=== PATIENT | female | born 1975 | race Caucasian/White ===

== ENCOUNTER 2019-01-17 11:47 | Inpatient (IN) ==
[2019-01-17] MEDS ORDERED: Celecoxib 200 MG CAPSULE PO ONE (12:11)
[2019-01-17] MEDS ORDERED: Gabapentin 300 MG CAPSULE PO ONE (12:11)
[2019-01-17] MEDS ORDERED: traMADol 50 MG TABLET PO ONE (12:11)
[2019-01-17] MEDS ORDERED: *HR* Promethazine 25 MG/ML VIAL IVP PRN ×2 (12:12→21:55)
[2019-01-17] MEDS ORDERED: Ringers Solution, Lactated 1,000 ML IVC SCH (12:15)
[2019-01-17] MEDS ORDERED: Clindamycin 900 MG/50 ML 900 MG/50 ML IV.SOLN IVPB ONE ×2 (12:18→18:01)
[2019-01-17] MEDS ORDERED: Albuterol 2.5 MG/3 ML NEBULIZER IH PRN (12:18)
[2019-01-17] MEDS ORDERED: *HR* Succinylcholine 200 MG/10 ML VIAL IVP ONE (13:01)
[2019-01-17] MEDS ORDERED: Lidocaine -MPF 2% 2 ML VIAL ONE (13:01)
[2019-01-17] MEDS ORDERED: *HR* Rocuronium Bromide 50 MG/5 ML VIAL ONE ×2 (13:01→15:08)
[2019-01-17] MEDS ORDERED: *HR* Propofol 200 MG/20 ML VIAL IVP ONE (13:01)
[2019-01-17] MEDS ORDERED: *HR* FentaNYL (PF) 100 MCG/2 ML VIAL ONE ×2 (13:01→13:41)
[2019-01-17] MEDS ORDERED: *HR* Midazolam HCl 2 MG/2 ML VIAL ONE (13:01)
[2019-01-17] MEDS ORDERED: Lidocaine HCL 4 ML Topical Solution (Laryng-O-Jet Kit Sterile Pak) TP ONE (13:01)
[2019-01-17] MEDS ORDERED: *HR* PHENYLEPHRINE 1,000 MCG/10 ML SYRINGE IVP ONE ×4 (13:04→19:48)
[2019-01-17] MEDS ORDERED: Ondansetron 4 MG/2 ML VIAL ONE ×2 (13:41→20:11)
[2019-01-17] MEDS ORDERED: Neostigmine Methylsulfate 3 MG/3 ML SYRINGE ONE (13:41)
[2019-01-17] MEDS ORDERED: Dexamethasone 4 MG/ML VIAL ONE (13:41)
[2019-01-17] MEDS ORDERED: *HR* HYDROMORPHONE 2 MG/ML VIAL ONE ×2 (18:49→20:09)
[2019-01-17] MEDS ORDERED: EPHEDrine 50 MG/ML VIAL ONE (19:32)
[2019-01-17] MEDS ORDERED: Acetaminophen IV 1,000 MG/100 ML INFUS..BTL ONE (20:45)
[2019-01-17] MEDS: *HR* HYDROmorphone (PF) 1 MG/ML SYRINGE IVP PRN ×2 (21:12→21:20)
[2019-01-17] MEDS ORDERED: Naloxone 0.4 MG/ML INJ IVP PRN (21:55)
[2019-01-17] MEDS ORDERED: *HR* FentaNYL (PF) 100 MCG/2 ML VIAL IVP PRN (21:55)
[2019-01-17] MEDS: 0.9 % Sodium Chloride 1,000 ML IVC SCH (22:18)
[2019-01-17] MEDS: MetroNIDAZOLE 500 MG/100 ML 500 MG/100 ML BAG IVPB SCH (23:51)
[2019-01-18] MEDS: Acetaminophen IV 1,000 MG/100 ML INFUS..BTL IVPB SCH ×5 (00:54→23:53)
[2019-01-18 07:17] LABS: Basophils % 0.1 %; Hemoglobin 12.5 g/dL (11.5-15.4); Immature Granulocytes % 0.3 % (0-4); Lymphocytes # 0.8 K/mcL (0.6-4.6); Lymphocytes % 8.2 %; Mean Corpuscular HGB Conc 33.8 g/dL (31.6-35.5); Mean Corpuscular Hemoglobin 30.7 pg (28.0-33.3); Mean Corpuscular Volume 90.9 fL (83.0-100.0); Mean Platelet Volume 8.7 fL (9.4-12.4); Monocytes # 0.6 K/mcL (0.0-1.3); Monocytes % 6.2 %; Neutrophils # 7.9 K/mcL (1.6-8.9); Platelet Count 240 K/mcL (140-400); Red Blood Count 4.07 M/mcL (3.82-4.97); Red Cell Distribution Width 13.3 % (11.5-14.5); Segmented Neutrophils % 85.2 %; White Blood Count 9.3 K/mcL (4.3-11.1)
[2019-01-18] MEDS: 0.9 % Sodium Chloride 1,000 ML IVC SCH ×3 (07:31→20:59)
[2019-01-18] MEDS: Pantoprazole 40 MG VIAL IVP SCH (08:00)
[2019-01-18] MEDS: MetroNIDAZOLE 500 MG/100 ML 500 MG/100 ML BAG IVPB SCH ×3 (08:00→23:54)
[2019-01-18 08:17] LABS: BUN/Creatinine Ratio 11 (6-26); Blood Urea Nitrogen 8 mg/dL (6-20); Calcium 8.3 mg/dL (8.6-10.3); Carbon Dioxide 27 mEq/L (23-29); Chloride 103 mEq/L (98-107); Glucose 135 mg/dL (70-105); Magnesium 1.5 mg/dL (1.6-2.6); Osmolality,Calculated 286 (280-300); Phosphorous 3.7 mg/dL (2.7-4.5); Sodium 138 mEq/L (136-145); eGFR For African Americans > 60 (> 60); eGFR For Non-African Americans > 60 (> 60)
[2019-01-18] MEDS ORDERED: Saliva Stimulant 100ml BOTTLE PO PRN (09:43)
[2019-01-18] MEDS ORDERED: Chloraseptic Spray 177 ML BOTTLE MM PRN (09:43)
[2019-01-18] MEDS: Ipratropium/Albuterol Neb 3 ML IH SCH ×3 (15:02→20:15)
[2019-01-18] MEDS: Ketorolac 15 MG/ML VIAL IVP SCH ×2 (17:51→23:52)
[2019-01-19] MEDS: Ipratropium/Albuterol Neb 3 ML IH SCH ×7 (00:12→23:58)
[2019-01-19] MEDS: 0.9 % Sodium Chloride 1,000 ML IVC SCH ×4 (00:19→18:22)
[2019-01-19 02:59] LABS: Basophils % 0.3 %; Eosinophils # 0.1 K/mcL (0.0-0.6); Eosinophils % 1.1 %; Hematocrit 35.4 % (35.3-44.9); Hemoglobin 11.3 g/dL (11.5-15.4); Immature Granulocytes % 0.3 % (0-4); Lymphocytes # 1.2 K/mcL (0.6-4.6); Lymphocytes % 16.5 %; Mean Corpuscular HGB Conc 31.9 g/dL (31.6-35.5); Mean Corpuscular Hemoglobin 30.3 pg (28.0-33.3); Mean Corpuscular Volume 94.9 fL (83.0-100.0); Mean Platelet Volume 8.9 fL (9.4-12.4); Monocytes # 0.6 K/mcL (0.0-1.3); Monocytes % 7.7 %; Neutrophils # 5.3 K/mcL (1.6-8.9); Platelet Count 207 K/mcL (140-400); Red Blood Count 3.73 M/mcL (3.82-4.97); Red Cell Distribution Width 13.7 % (11.5-14.5); Segmented Neutrophils % 74.1 %; White Blood Count 7.1 K/mcL (4.3-11.1)
[2019-01-19 03:19] LABS: BUN/Creatinine Ratio 11 (6-26); Blood Urea Nitrogen 7 mg/dL (6-20); Calcium 8.1 mg/dL (8.6-10.3); Carbon Dioxide 27 mEq/L (23-29); Chloride 105 mEq/L (98-107); Glucose 101 mg/dL (70-105); Magnesium 1.8 mg/dL (1.6-2.6); Osmolality,Calculated 284 (280-300); Phosphorous 2.1 mg/dL (2.7-4.5); Potassium 3.6 mEq/L (3.5-5.1); Sodium 138 mEq/L (136-145); eGFR For African Americans > 60 (> 60); eGFR For Non-African Americans > 60 (> 60)
[2019-01-19] MEDS: Ketorolac 15 MG/ML VIAL IVP SCH ×3 (06:03→18:22)
[2019-01-19] MEDS: Acetaminophen IV 1,000 MG/100 ML INFUS..BTL IVPB SCH ×3 (06:04→18:20)
[2019-01-19] MEDS: Pantoprazole 40 MG VIAL IVP SCH (10:11)
[2019-01-19] MEDS: MetroNIDAZOLE 500 MG/100 ML 500 MG/100 ML BAG IVPB SCH ×2 (10:11→16:19)
[2019-01-19] MEDS: *HR* Heparin 5,000 UNIT/ML VIAL SQ SCH ×2 (10:11→18:22)
[2019-01-19] MEDS ORDERED: Potassium Phosphate 44 MEQ in 0.9 % Sodium Chloride 250 ML IVPB ONE (11:16)
[2019-01-19] MEDS: Ondansetron 4 MG/2 ML VIAL IVP PRN (16:20)
[2019-01-20] MEDS: Acetaminophen IV 1,000 MG/100 ML INFUS..BTL IVPB SCH ×5 (00:52→23:49)
[2019-01-20] MEDS: MetroNIDAZOLE 500 MG/100 ML 500 MG/100 ML BAG IVPB SCH ×3 (00:52→16:06)
[2019-01-20] MEDS: Ketorolac 15 MG/ML VIAL IVP SCH ×5 (00:53→23:50)
[2019-01-20] MEDS: *HR* LORazepam 2 MG/ML VIAL IVP PRN (02:36)
[2019-01-20] MEDS: Ipratropium/Albuterol Neb 3 ML IH SCH ×6 (04:13→22:41)
[2019-01-20 05:36] LABS: Basophils % 0.7 %; Eosinophils # 0.4 K/mcL (0.0-0.6); Eosinophils % 6.6 %; Hematocrit 32.6 % (35.3-44.9); Hemoglobin 10.4 g/dL (11.5-15.4); Immature Granulocytes % 0.5 % (0-4); Lymphocytes # 1.5 K/mcL (0.6-4.6); Lymphocytes % 24.9 %; Mean Corpuscular HGB Conc 31.9 g/dL (31.6-35.5); Mean Corpuscular Hemoglobin 30.2 pg (28.0-33.3); Mean Corpuscular Volume 94.8 fL (83.0-100.0); Mean Platelet Volume 8.6 fL (9.4-12.4); Monocytes # 0.5 K/mcL (0.0-1.3); Monocytes % 7.6 %; Neutrophils # 3.6 K/mcL (1.6-8.9); Platelet Count 198 K/mcL (140-400); Red Blood Count 3.44 M/mcL (3.82-4.97); Red Cell Distribution Width 13.3 % (11.5-14.5); Segmented Neutrophils % 59.7 %; White Blood Count 6.1 K/mcL (4.3-11.1)
[2019-01-20] MEDS: *HR* Heparin 5,000 UNIT/ML VIAL SQ SCH ×2 (05:51→18:06)
[2019-01-20 05:56] LABS: BUN/Creatinine Ratio 10 (6-26); Blood Urea Nitrogen 6 mg/dL (6-20); Calcium 8.5 mg/dL (8.6-10.3); Carbon Dioxide 28 mEq/L (23-29); Chloride 104 mEq/L (98-107); Glucose 89 mg/dL (70-105); Magnesium 1.7 mg/dL (1.6-2.6); Osmolality,Calculated 287 (280-300); Phosphorous 2.9 mg/dL (2.7-4.5); Potassium 3.3 mEq/L (3.5-5.1); Sodium 140 mEq/L (136-145); eGFR For African Americans > 60 (> 60); eGFR For Non-African Americans > 60 (> 60)
[2019-01-20] MEDS: Pantoprazole 40 MG VIAL IVP SCH (08:32)
[2019-01-20] MEDS: D5% in 0.45% NACL w KCl 20 MEQ/1,000 ML MLS IVC SCH ×2 (08:32→23:50)
[2019-01-20] MEDS ORDERED: Potassium Chloride 40 MEQ, Lidocaine 1% 2 ML in 0.9 % Sodium Chloride 500 ML IVPB ONE (12:09)
[2019-01-20] MEDS: Ondansetron 4 MG/2 ML VIAL IVP PRN (23:50)
[2019-01-21] MEDS: MetroNIDAZOLE 500 MG/100 ML 500 MG/100 ML BAG IVPB SCH ×3 (00:25→16:40)
[2019-01-21] MEDS: *HR* LORazepam 2 MG/ML VIAL IVP PRN (02:07)
[2019-01-21] MEDS: Ipratropium/Albuterol Neb 3 ML IH SCH ×5 (03:46→20:26)
[2019-01-21] MEDS: Ketorolac 15 MG/ML VIAL IVP SCH ×3 (05:14→17:25)
[2019-01-21] MEDS: Acetaminophen IV 1,000 MG/100 ML INFUS..BTL IVPB SCH ×3 (05:15→18:34)
[2019-01-21] MEDS: *HR* Heparin 5,000 UNIT/ML VIAL SQ SCH ×2 (05:17→17:25)
[2019-01-21 06:25] LABS: Basophils % 0.4 %; Eosinophils # 0.2 K/mcL (0.0-0.6); Hematocrit 32.9 % (35.3-44.9); Hemoglobin 11.2 g/dL (11.5-15.4); Immature Granulocytes % 0.3 % (0-4); Lymphocytes # 1.1 K/mcL (0.6-4.6); Lymphocytes % 14.6 %; Mean Corpuscular Hemoglobin 30.8 pg (28.0-33.3); Mean Corpuscular Volume 90.4 fL (83.0-100.0); Mean Platelet Volume 9.1 fL (9.4-12.4); Monocytes # 0.4 K/mcL (0.0-1.3); Monocytes % 5.8 %; Neutrophils # 5.6 K/mcL (1.6-8.9); Platelet Count 252 K/mcL (140-400); Red Blood Count 3.64 M/mcL (3.82-4.97); Red Cell Distribution Width 13.2 % (11.5-14.5); Segmented Neutrophils % 75.9 %; White Blood Count 7.4 K/mcL (4.3-11.1)
[2019-01-21 06:46] LABS: BUN/Creatinine Ratio 8 (6-26); Blood Urea Nitrogen 5 mg/dL (6-20); Calcium 8.7 mg/dL (8.6-10.3); Carbon Dioxide 28 mEq/L (23-29); Chloride 104 mEq/L (98-107); Glucose 102 mg/dL (70-105); Magnesium 1.7 mg/dL (1.6-2.6); Osmolality,Calculated 283 (280-300); Phosphorous 3.2 mg/dL (2.7-4.5); Potassium 3.6 mEq/L (3.5-5.1); Sodium 138 mEq/L (136-145); eGFR For African Americans > 60 (> 60); eGFR For Non-African Americans > 60 (> 60)
[2019-01-21] MEDS: Ondansetron 4 MG/2 ML VIAL IVP PRN ×3 (09:17→21:44)
[2019-01-21] MEDS: Pantoprazole 40 MG VIAL IVP SCH (09:17)
[2019-01-21] MEDS: Metoclopramide 10 MG/2 ML VIAL IVP SCH ×2 (12:12→17:25)
[2019-01-21] MEDS: D5% in 0.45% NACL w KCl 20 MEQ/1,000 ML MLS IVC SCH (15:39)
[2019-01-22] MEDS: Metoclopramide 10 MG/2 ML VIAL IVP SCH ×4 (00:39→18:29)
[2019-01-22] MEDS: Ketorolac 15 MG/ML VIAL IVP SCH ×4 (00:39→18:27)
[2019-01-22] MEDS: Acetaminophen IV 1,000 MG/100 ML INFUS..BTL IVPB SCH ×4 (00:39→18:27)
[2019-01-22] MEDS: MetroNIDAZOLE 500 MG/100 ML 500 MG/100 ML BAG IVPB SCH ×3 (00:40→15:36)
[2019-01-22] MEDS: *HR* LORazepam 2 MG/ML VIAL IVP PRN (00:44)
[2019-01-22] MEDS: Ipratropium/Albuterol Neb 3 ML IH SCH ×7 (01:02→23:36)
[2019-01-22] MEDS: D5% in 0.45% NACL w KCl 20 MEQ/1,000 ML MLS IVC SCH ×3 (05:25→23:19)
[2019-01-22] MEDS: *HR* Heparin 5,000 UNIT/ML VIAL SQ SCH ×2 (05:26→18:29)
[2019-01-22] MEDS: Ondansetron 4 MG/2 ML VIAL IVP PRN (08:21)
[2019-01-22] MEDS: Pantoprazole 40 MG VIAL IVP SCH (08:21)
[2019-01-22 09:22] LABS: BUN/Creatinine Ratio 9 (6-26); Blood Urea Nitrogen 6 mg/dL (6-20); Calcium 8.5 mg/dL (8.6-10.3); Carbon Dioxide 27 mEq/L (23-29); Chloride 104 mEq/L (98-107); Glucose 110 mg/dL (70-105); Osmolality,Calculated 284 (280-300); Potassium 3.5 mEq/L (3.5-5.1); Sodium 138 mEq/L (136-145); eGFR For African Americans > 60 (> 60); eGFR For Non-African Americans > 60 (> 60)
[2019-01-22 10:57] LABS: Magnesium 1.8 mg/dL (1.6-2.6); Phosphorous 3.6 mg/dL (2.7-4.5)
[2019-01-23] MEDS: Acetaminophen IV 1,000 MG/100 ML INFUS..BTL IVPB SCH ×3 (00:09→12:18)
[2019-01-23] MEDS: Metoclopramide 10 MG/2 ML VIAL IVP SCH ×3 (00:10→12:16)
[2019-01-23] MEDS: MetroNIDAZOLE 500 MG/100 ML 500 MG/100 ML BAG IVPB SCH ×2 (01:03→09:47)
[2019-01-23] MEDS: Ipratropium/Albuterol Neb 3 ML IH SCH ×3 (03:15→11:40)
[2019-01-23] MEDS: *HR* Heparin 5,000 UNIT/ML VIAL SQ SCH (05:35)
[2019-01-23] MEDS: Pantoprazole 40 MG VIAL IVP SCH (09:47)
[2019-01-23 11:27] VITALS: BP 113/49
[2019-01-23] MEDS: D5% in 0.45% NACL w KCl 20 MEQ/1,000 ML MLS IVC SCH (12:35)
== END 2019-01-23 15:25 | disposition home or self-care (01) | DRG 345 ==
LOC: SAMDAY 11:47 → 3ANU 21:55
PROVIDERS: ADMIT Surgery; ATTEND Surgery

== ENCOUNTER 2021-03-06 00:10 | Inpatient (IN) ==
[2021-03-06 03:46] LABS: Influenza A PCR Negative (Negative); Influenza B PCR Negative (Negative); Resp. Syncytial Virus PCR Negative (Negative)
[2021-03-06 03:47] LABS: SARS-CoV-2 by PCR (In House) Negative (Negative)
[2021-03-06] MEDS ORDERED: hydrOXYzine pamoate 25 MG CAPSULE PO PRN (04:15)
[2021-03-06] MEDS ORDERED: traZODone 50 MG TABLET PO PRN (04:15)
[2021-03-06] MEDS ORDERED: haloperidoL 5 MG TABLET PO PRN (04:15)
[2021-03-06] MEDS ORDERED: *HR* LORazepam 1 MG TABLET PO PRN (04:15)
[2021-03-06] MEDS ORDERED: Haloperidol Lactate 5 MG/ML VIAL IM PRN (04:15)
[2021-03-06] MEDS ORDERED: *HR* LORazepam 2 MG/ML VIAL IM PRN (04:15)
[2021-03-06] MEDS: Acetaminophen 325 MG TABLET PO PRN (05:15)
[2021-03-06] MEDS ORDERED: ALPRAZolam 0.5 MG TABLET PO PRN (11:12)
[2021-03-06] MEDS: polyethylene glycoL 3350 17 GM POWD.PACK PO SCH (14:04)
[2021-03-06] MEDS: clonazePAM 1 MG TABLET PO SCH (21:11)
[2021-03-06] MEDS: ARIPiprazole 5 MG TABLET PO SCH (21:11)
[2021-03-07] MEDS ORDERED: ALPRAZolam 0.5 MG TABLET PO PRN (09:07)
[2021-03-07] MEDS: polyethylene glycoL 3350 17 GM POWD.PACK PO SCH (09:45)
[2021-03-07] MEDS: Ondansetron ODT 4 MG TAB.RAPDIS SL PRN (13:17)
[2021-03-07] MEDS: Acetaminophen 325 MG TABLET PO PRN (16:30)
[2021-03-07] MEDS: ARIPiprazole 5 MG TABLET PO SCH (20:44)
[2021-03-07] MEDS: clonazePAM 1 MG TABLET PO SCH (20:44)
[2021-03-08] MEDS: polyethylene glycoL 3350 17 GM POWD.PACK PO SCH (09:42)
[2021-03-08] MEDS: clonazePAM 1 MG TABLET PO SCH (21:06)
[2021-03-08] MEDS: Acetaminophen 325 MG TABLET PO PRN (21:06)
[2021-03-08] MEDS: ARIPiprazole 5 MG TABLET PO SCH (21:06)
[2021-03-09] MEDS ORDERED: MOM Conc 10 ML UD.LIQ PO PRN (08:36)
[2021-03-09] MEDS ORDERED: Mag Hydrox/Al Hydrox/Simeth 30 ML UDC PO PRN (08:36)
[2021-03-09] MEDS: polyethylene glycoL 3350 17 GM POWD.PACK PO SCH (09:48)
[2021-03-09] MEDS: clonazePAM 1 MG TABLET PO SCH (20:14)
[2021-03-09] MEDS: ARIPiprazole 10 MG TABLET PO SCH (20:14)
[2021-03-09] MEDS: Acetaminophen 325 MG TABLET PO PRN (20:14)
[2021-03-10] MEDS: Ondansetron ODT 4 MG TAB.RAPDIS SL PRN ×2 (09:24→15:00)
[2021-03-10] MEDS: polyethylene glycoL 3350 17 GM POWD.PACK PO SCH (09:25)
[2021-03-10] MEDS: Acetaminophen 325 MG TABLET PO PRN (15:00)
[2021-03-10] MEDS: clonazePAM 1 MG TABLET PO SCH (21:32)
[2021-03-10] MEDS: ARIPiprazole 10 MG TABLET PO SCH (21:32)
[2021-03-11] MEDS: polyethylene glycoL 3350 17 GM POWD.PACK PO SCH (08:34)
[2021-03-11 09:11] VITALS: BP 107/74; PULSE 80; TEMP 99.1; O2SAT 98
[2021-03-11] MEDS: Acetaminophen 325 MG TABLET PO PRN (09:44)
== END 2021-03-11 15:33 | disposition home or self-care (01) | DRG 885 ==
LOC: EMEROOARM 00:10 → 1ANU 03:55
PROVIDERS: ADMIT Psychiatry & Neurology Psychiatry; ATTEND Psychiatry & Neurology Psychiatry